=== PATIENT | male | born 1985 | race Caucasian/White ===

== ENCOUNTER → 2017-12-31 | Outpatient (CLI) | payer OTHER | LOC: RAD 13:34 | DX: R06.00 Dyspnea, unspecified (principal) ==

== ENCOUNTER → 2018-01-07 | Outpatient (CLI) | payer OTHER ==
--- NOTE | ~2018-01-07 | 2DMMODE ---
[facility] [address] [place] [address] 2 D/M-MODE ECHOCARDIOGRAM Name: STANISLAV DENIS Room #: REG CL [facility]#: [id number] Admission: 01/07/18 Attend Phys: Alexandr Collado, Discharge: Date of : 81 Date of Service: 01/07/18 1124 Report #: [id number] THIS REPORT FOR: //name// APPROVED REPORT Study performed: 01/07/2018 10:24:28 EXAM: Comprehensive 2D, Doppler, and color-flow Echocardiogram Patient Location: Out-Patient Status: routine BSA: 2.08 HR: 76 bpm BP: 134/92 mmHg Rhythm: NSR Indications Dyspnea, chest pain. Family history of [place]. 2D Dimensions RVDd: 34.68 mm LVEF(%): 63.43 (>50%) IVSd: 9.68 (7-11mm) LVOT Diam: 20.55 (18-24mm) LVDd: 44.49 mm PWd: 9.68 (7-11mm) Ascending Ao: 29.13 (22-36mm) LVDs: 29.25 (25-40mm) Aortic Root: 32.76 mm Singh's LVEF: 63.43 % Volumes Left Atrial Volume (Systole) Single Plane 4CH: 32.63 mL Single Plane 2CH: 38.78 mL LA ESV Index: 19.00 mL/m2 Aortic Valve AoV Peak Marvin.: 1.28 m/s AO Peak Gr.: 6.57 mmHg LVOT Max P.96 mmHg LVOT Max V: 0.86 m/s SHARYN Vmax: 2.22 cm2 Mitral Valve E/A Ratio: 1.5 MV Decel. Time: 148.77 ms MV E Max Marvin.: 0.84 m/s MV A Marvin.: 0.55 m/s MV PHT: 43.14 ms [facility] [place] [address] 2 D/M-MODE ECHOCARDIOGRAM Name: STANISLAV DENIS Room #: REG [facility]#: [id number] Admission: 01/07/18 Attend Phys: Alexandr Collado, Discharge: Date of : 81 Date of Service: 01/07/18 1124 Report #: [id number] IVRT: 69.20 ms Pulmonary Valve PV Peak Marvin.: 0.80 m/s PV Peak Gr.: 2.56 mmHg Pulmonary Vein P Vein S: 0.59 m/s P Vein D: 0.54 m/s P Vein S/D Ratio: 1.09 Tricuspid Valve RAP Estimate: 5.00 mmHg Left Ventricle The left ventricle is normal size. There is normal LV segmental wall motion. There is normal left ventricular wall thickness. Left ventricular systolic function is normal. LVEF is 55-60%. The left ventricular diastolic function is normal. Right Ventricle The right ventricle is normal size. The right ventricular systolic function is normal. Atria The left atrium size is normal. The right atrium size is normal. Aortic Valve The aortic valve is normal in structure. No aortic regurgitation is present. There is no aortic valvular stenosis. Mitral Valve The mitral valve is normal in structure. Systolic anterior motion of chordal structures There is no mitral valve regurgitation noted. No evidence of mitral valve stenosis. Tricuspid Valve The tricuspid valve is normal in structure. There is no tricuspid valve regurgitation noted. Unable to assess PA pressure. Pulmonic Valve The pulmonary valve is normal in structure. Trace pulmonic regurgitation. Great Vessels The aortic root is normal in size. The ascending aorta is normal in [address] [address] 2 D/M-MODE ECHOCARDIOGRAM Name: STANISLAV DENIS Room #: REG CL [facility]#: [id number] Admission: 01/07/18 Attend Phys: Alexandr Collado, Discharge: Date of : 81 Date of Service: 01/07/18 1124 Report #: [id number] size. IVC is normal in size and collapses >50% with inspiration. Pericardium There is no pericardial effusion. <Conclusion> 1. Normal echocardiogram with Doppler. EF 60% 2. No pericardial effusion <ELECTRONICALLY SIGNED> By: Narayan Dong MD, [facility] 01/07/18 1124 1124 1124 Narayan Dong MD, FAC /INF
== END ==
LOC: CV 07:05
DX: R07.89 Other chest pain (principal); R06.00 Dyspnea, unspecified